=== PATIENT | female | born 1990 | race Caucasian/White ===

== ENCOUNTER 2017-03-08 15:49 | Emergency (ER) | payer SELFPAY ==
[~2017-03-08] VITALS: Ht 167.6 cm; Wt 54.4 kg
--- NOTE | 2017-03-08 15:53 | NUR ---
TONY SEBASTIAN FROM CLINIC FOR HEROIN INJECTION OVERDOSE. GOWNED PT. PLACED ON MONITOR. VSS.
--- NOTE | 2017-03-08 17:05 | NUR ---
Patient discharged to home in stable condition. Written and verbal after care instructions given. Patient verbalizes understanding of instruction.
[2017-03-08 17:06] VITALS: BP 106/75
--- NOTE | 2017-03-08 17:21 | NUR ---
CALLED FOR FOOD TRAY
== END 2017-03-08 17:53 | disposition home or self-care (01) ==
LOC: ER 15:50
DX: T40.1X1A Poisoning by heroin, accidental (unintentional), initial encounter (principal); F11.10 Opioid abuse, uncomplicated; Y92.89 Other specified places as the place of occurrence of the external cause
CPT/HCPCS: 99283; A4606; Z7610